=== PATIENT | female | born 1965 | race Caucasian/White ===

== ENCOUNTER → 2022-11-02 10:45 | Outpatient (CLI) | payer OTHER, SELFPAY ==
--- NOTE | ~2022-11-02 | MM_ITS ---
EXAMINATION: MM screening dereck BI w keith HISTORY: Screening mammogram TECHNIQUE: Craniocaudal and mediolateral oblique 3-D tomosynthesis images were obtained and synthetic 2-D images were generated. CAD analysis was submitted and interpreted. COMPARISON: 12/24/2018, 12/07/2014 bilateral screening mammogram examinations BREAST PARENCHYMAL COMPOSITION: The breasts are extremely dense, which lowers the sensitivity of mamm ography. FINDINGS: There is no evidence of suspicious mass, calcification, or architectural distortion to sugg est malignancy in either breast. There has been no suspicious interval change. IMPRESSION: 1. No mammographic evidence of malignancy. 2. Recommend routine screening mammography in one year. BI-RADS Category 1: Negative Reviewed, dictated and finalized at location A.
== END ==
DX: Z12.31 Encounter for screening mammogram for malignant neoplasm of breast (principal)
CPT/HCPCS: 77063; 77067

== ENCOUNTER 2024-10-20 08:04 | Outpatient (CLI) | payer BC, SELFPAY ==
--- NOTE | ~2024-10-20 | MM_ITS ---
EXAMINATION: MM screening dereck BI w keith HISTORY: Screening TECHNIQUE: Craniocaudal and mediolateral oblique 3-D tomosynthesis images were obtained and synthetic 2-D images were generated. CAD analysis was submitted and interpreted. COMPARISON: Comparison to multiple prior studies sequentially, with oldest reviewed study dated 12/07. BREAST PARENCHYMAL COMPOSITION: The breasts are extremely dense, which lowers the sensitivity of mamm ography. FINDINGS: There is no evidence of suspicious mass, calcification, or architectural distortion to sugg est malignancy in either breast. There has been no suspicious interval change. IMPRESSION: 1. No mammographic evidence of malignancy. 2. Recommend routine screening mammography in one year. BI-RADS Category 1: Negative Reviewed, dictated and finalized at location B.
--- OUTSIDE RECORDS SUMMARY | 2024-10-20 08:14 | XMS_ITS | Data Portability ---
Author Organization [facility], [address] [facility] ([place]) Address [address] [place] [address] Care Team Providers Care Skin Piler Name Role Phone FIDEL QUESADA Primary Care Provider [phone] Assessment Encounter Date Assessment Date Assessment LastModified by Organization Details LastModified Time 07/02/2024 07/02/2024 Hypothyroidism -iatrogenic after partial thyroidectomy -managed on levothyroxine. -TSH, BMP collected today Recurrent DVT -continue Eliquis ppx. Lipid screening -lipid panel collected for baseline. Colon cancer screening -discussed options. She declines colonoscopy but agreeable to Cologuard. She has been receiving gynecological care in [place]. States she is up to date on cervical and breast cancer screening. We will obtain records from Dr. Potter's office. Continue current medication regimen (will need to send levothyroxine once TSH resulted). Plan routine follow up in 12 months, sooner if needed. Patient voices understanding of and agreement with plan. [email or web address] Not available 07/02/2024 21:06:49 Plan of Treatment Reminders Order Date Submit Date Provider Last Modified By Organization Details Last Modified Time Details Appointments None recorded. Lab lipid panel, serum 025 025 [facility], [address] [place] [address], [id number], 5 15:12:02 BMP, serum or plasma 025 025 TREMAINE [facility], [facility] [place] [address], [id number], 15:12:01 TSH, ultra-sen sitive, serum 025 [facility] Only - [facility], [address] [place] [address], [id number], 5 15:07:44 Referral None recorded. Procedures None recorded. Surgeries None recorded. Imaging None recorded. Medication Orders Eliquis 5 mg tablet 025 TREMA[facility] [place], [place] - [id number], [address] [place], [address], 14:45:24 Patient TargetsNo targets recorded. Patient InstructionsNo instructions recorded. Reason for Referral None Reported. Results Created Date Observation Date Name Description Value Unit Range Abnormal Flag Note LastModifiedBy Organization Detail LastModifiedTime 07/02/1907/03/2024 TSH, ultra -sens itive , serum TSH3 0.609 uIU/m L .340-5 .600 Not Available [facility] [address] [place] [address], [id number], 07/03/2024 15:07:44 07/02/1907/03/2024 BMP, serum or plasm a basic met. panel Not Available [facility] [address] [place] [address], [id number], 07/03/2024 15:12:00 07/02/1907/03/2024 BMP, serum or plasm a glucose 101 mg/dL 70-100 high Not Available [facility] [address] [place] [address], [id number], 07/03/2024 15:12:00 07/02/1907/03/2024 BMP, serum or plasm a sodium 142 mmol/ L 136-14 6 Not Available [facility] [address] [place] [address], [id number], 07/03/2024 15:12:00 07/02/1907/03/2024 BMP, serum or plasm a potassium 4.0 mmol/ L 3.5-5. 1 Not Available [facility] [address] [place] [address], [address], 07/03/2024 15:12:00 07/02/19 25 07/03/2024 BMP, serum or plasm a chloride 104 mmol/ L 98-110 Not Available [facility] [address] [place] [address], [address], 07/03/2024 15:12:00 07/02/19 25 07/03/2024 BMP, serum or plasm a CO2 29 mEq/L 20-32 Not Available [facility] [address] [place] [address], [address], 07/03/2024 15:12:00 07/02/19 25 07/03/2024 BMP, serum or plasm a anion gap 13 mmol/ L 10-22 Not Available [facility] [address] [place] [address], [address], 07/03/2024 15:12:00 07/02/19 25 07/03/2024 BMP, serum or plasm a calcium 9.9 mg/dL 8.4-10 .4 Not Available [facility] [address] [place] [address], [address], 07/03/2024 15:12:00 07/02/19 25 07/03/2024 BMP, serum or plasm a BUN 14 mg/dL 7-21 Not Available [facility] [address] [place] [address], [address], 07/03/2024 15:12:00 07/02/19 25 07/03/2024 BMP, serum or plasm a creatinine 0.8 mg/dL 0.7-1. 3 Not Available [facility] [address] [place] [address], [id number], 07/03/2024 15:12:00 07/02/19 25 07/03/2024 BMP, serum or plasm a CKD-epi GFR 86 eGFR was calcu lated using the 2020 CKD-E PI equat ion. (Train Caller satya Kidne y Disea se has an eGFR less than 60 mL/mi n/1.7 3mm for a perio d of three month s or more. ) This calcu latio n has not been valid ated for patie nt ages <18 or >90 years old. Not Available [facility] [address] [place] [address], [address], 07/03/2024 15:12:00 07/02/19 25 07/03/2024 lipid panel , serum lipid profile Not Available [facility] [address] [place] [address], [address], 07/03/2024 15:12:02 07/02/19 25 07/03/2024 lipid panel , serum cholesterol 184 mg/dL <25-20 0 Not Available [facility] [address] [place] [address], [address], 07/03/2024 15:12:02 07/02/19 25 07/03/2024 lipid panel , serum triglyceride 95 mg/dL 15-200 Not Available [facility] [address] [place] [address], [address], 07/03/2024 15:12:02 07/02/19 25 07/03/2024 lipid panel , serum HDL 55 mg/dL >40 Not Available [facility] [address] [place] [address], [address], 07/03/2024 15:12:02 07/02/19 25 07/03/2024 lipid panel , serum LDL, calculated 110 mg/dL 5-100 high Not Available [facility] [address] [place] [address], [address], 07/03/2024 15:12:02 07/02/19 25 07/03/2024 lipid panel , serum VLDL 19 mg/dL 1-40 Not Available [facility] [address] [place] [address], [address], 07/03/2024 15:12:02 07/02/19 25 07/03/2024 lipid panel , serum chol/HDL 3.3 ratio 0.0-4. 4 Not Available [facility] [address] [place] [address], [address], 07/03/2024 15:12:02 07/31/19 25 11/02/2022 MAMMO , scree leo, digit al, bilat eral No observ ation record ed. [email or web address] [facility] [address], [place], [address], 07/31/2024 14:03:36 09/10/19 25 04/03/2022 imagi ng/di agnos tic resul t No observ ation record ed. [email or web address] Not Available 01:59:21 Result Notes None recorded. Problems Name Problem SNOMED Code Status Onset Date Resolution Date Notes Provider Name and Address Organization Details Recorded Time Recurren t deep vein thrombos is 826787906 Active 2024 Hx Left Leg DVT & PE 1998 (during pregnanc y). Superfic ial L. greater saphenou s vein . Then L. common femoral vein DVT . Heme-Onc eval then () recommen ded halfway anti-coa g. Tx Eliquis (plan transiti on Rx from Hematolo gy to PCP in Fall 2022). Catrina Caballero, KIANA, [employer] TECHNICIAN [address] [place] [address], [phone], [facility] 5 12:29:27 Pain in left arm 189586679 Active 2024 radiatin g from shoulder down ulnar-po sterior arm in fall. NCS suggesti ve of mild carpal tunnel syndrome (but no radiculo hugo). Ortho onboard . 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 Catrina Caballero APRN, [employer] TECHNICIAN [address] [place] [address], [phone], [facility] 5 12:29:51 Chronic neck pain 58196583365 07 Active 2024 sx > 1yr, assoc'd rt sided facial parasthe adi. Impv'd, not resolved w/ PT. 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 Catrina Caballero APRN, [employer] TECHNICIAN [address] [facility], [place], [address], [facility] 5 12:30:06 Chronic thyroidi tis 55620061 Active 2024 Catrina Caballero APRN, [employer] TECHNICIAN [address] [place] [address], [address], [facility] 5 12:30:18 Lipoma of chest wall 914006547 Completed 202407/02/2024 discomfo rt and asymmetr y of left upper-ou ter chest, MRI confirms lipomato us tumor. s/p excision 05-19-22. Catrina Caballero APRN, [employer] TECHNICIAN [address] [place] [address], [phone], [facility] 5 12:30:41 History of pulmonar y embolus 680485433 Active 2024 w/ DVT 1998 during pregnanc y. s/p Heme-Onc eval (incl rule OUT Protiein S deficien cy) where ppx Aspirin recommen ded plus post-op low-dose Lovenox for surgerie s (or during hospital izations ). History / ppx plan then complica ayala by recurren t DVT (see separate problem) . Catrina Caballero APRN, [employer] TECHNICIAN [address] [facility], [place], [address], [facility] 5 12:30:58 Hypothyr oidism 68236464 Active 2024 iatrogen ic after partial thyroide comy (for thyroid mass, ultimate ly benign). Tx levothyr oxine (logisti juan Rx'd by ENT, until plan transiti on to PCP in / after Fall 2022). TSH 0.6 on . Catrina Caballero APRN, [employer] TECHNICIAN [address] [facility], [place], [address], [facility] 5 15:20:57 Deep venous thrombos is of left lower extremit y [id number] 4100 Completed 202407/02/2024 Left Common Femoral Vein DVT 12/2022. Catrina Caballero APRN, [employer] TECHNICIAN [address] [facility], [place], [address], [facility] 5 12:31:41 Recurren t urinary tract infectio n 330586480 Completed 202407/02/2024 nmL renal / bladder US . Bactrim Rx for episode 10/22/17, cx Klebsiel la (Amp & Macrobid resistan t). 04/21/19 urine dip + leukocyt es, blood. Cx ecoli, resistan t to several abx but sensitiv e to Bactrim. 04/24/19 changed to Macrobid for persisti ng sx. tx Bactrim. Catrina Caballero APRN, [employer] TECHNICIAN [address] [facility], [place], [address], [facility] 5 12:32:02 Superfic ial vein thrombos is 416711281 Completed 202407/02/2024 04/26/22 left greater saphenou s vein, approach ing deep vein system, Tx w/ Eliquis x 3mo. See, then Recurren t DVT. Catrina Caballero APRN, [employer] TECHNICIAN [address] [facility], [place], [address], [facility] 5 12:32:23 Tachycar schuyler 4523794 Active 202409/07/23 Noted with exertion ; nrml EKG and cardiac enzyme; Holter monitor sinus rhythm ranging from 45-150 bpm; 184 PVC's noted and 32 PAC's Catrina Caballero APRN, [employer] TECHNICIAN [address] [place] [address], [address], [facility] 5 12:32:38 Screenin g mammogra phy Active 2024 f/b gyne. NmL Catrina Caballero APRN, [employer] TECHNICIAN [address] [place] [address], [phone], [facility] 5 14:02:48 Screenin g for malignan t neoplasm of colon Active 2024 neg Cologuar d . Plan repeat Catrina Caballero APRN, [employer] TECHNICIAN [address] [place] [address], [phone], [facility] 5 17:43:39 Cancer cervix screenin g status 194800497 Active 2024 f/b gyne (Dr. Potter in [facility] [place] NILM, neg HPV. Catrina Caballero APRN, [employer] TECHNICIAN [address] [place] [address], [phone], [facility] 5 12:02:05 Hyperlip idemia screenin g Active 2024 baseelin e total 184, HDL 55, LDL 110. 10 yr risk 2 % Catrina Caballero APRN, [employer] TECHNICIAN [address] [place] [address], [address], [facility] 5 15:20:44 Problem Notes None recorded. Procedures Surgical History Date Name Laterality Status Provider Name and Address Organization Details Recorded Time lobectomy of thyroid gland completed Catrina Caballero APRN, [employer] TECHNICIAN [address] [place] [address], [phone], [facility] 07/02/2024 12:33:11 excision of mass completed Catrina Caballero APRN, [employer] TECHNICIAN [address] [place] [address], [phone], [facility] 07/02/2024 12:33:28 Imaging Results None recorded. Procedure Notes None recorded. Medical Equipment None Reported. Allergies No known drug allergies Medications Name Sig Start Date Stop Date Status Note LastModified by Organization Details LastModified Time levothyroxine 75 mcg tablet Take 1 tablet every day by oral route. 2024 active Not Available Not Available Not Avai lable Eliquis 5 mg tablet TAKE 1 TABLET BY MOUTH TWO TIMES A DAY 2024 active Not Available Not Available Not Avai lable Hair, Skin and Nails (biotin) Take 1 tablet daily active Not Available Not Available No t Available Vitals Date Recorded Body weight Body temperature Heart rate Oxygen saturation Oxygen saturation in Arterial blood by Pulse oximetry Body mass index (BMI) Body height Systolic blood pressure Diastolic blood pressure Provider Name and Address Organization Details Last Updated DateTime 5 11402.4 2 g 98.1 [degF] 62 /min 98 % 98 % 23.8 kg/m2 168.91 cm 112 mm[Hg] 78 mm[Hg] Ashtyn Thomson [facility] 17:25:54 Social History None recorded. Functional Status None recorded. Mental Status None recorded. Family History Relationship Description Onset Age of this Age Resolved Age Notes LastModified by Organization Details LastModified Time Unspecified Relation Heart disease Not available 2024 12:33:54 Mother Diabetes mellitus [email or web address] Not available 2024 12:34:05 Brother Diabetes mellitus [email or web address] Not available 2024 12:34:05 Medical History No medical history recorded. Gynecological HistoryNo gynecological history recorded. Obstetrics History GPAL:G 0 P 0 0 0 0 Immunizations Vaccine Type Date Status Note Provider Nam e and Address Organization Details Recorded Time Influenza, split virus, quadrivalent, preservative 9 completed Ashtyn bender [facility] 07/02/2024 17:22:11 COVID-19, mRNA, LNP-S, PF, 100 mcg/0.5mL dose or 50 mcg/0.25mL dose 1 [facility] 17:22:11 COVID-19, mRNA, LNP-S, PF, 100 mcg/0.5mL dose or 50 mcg/0.25mL dose 1 [facility] 17:22:11 Past Encounters Encounter ID Performer Location Encounter Start Date Encounter Closed Date Diagnosis/Indication Diagnosis SNOMED-CT Code Diagnosis ICD10 Code Diagnosis Note [id number] Catrina Caballero APRN, [employer] REPA[employer] TECHNICIAN [facility] ([place]) [address] [place] [address] 07/02/2024 17:06:21 07/02/2024 17:55:20 Hyperlipidemia screening 264142471 Z13.220 Hypothyroidism 26845678 E03.8 Recurrent deep vein thrombosis 445793759 I82.409 Screening for malignant neoplasm of colon 567329818 Z12.11 Health Concerns Section Related Observation LastModified by Organization Detai ls LastModified Time None Recorded Concern Status LastModified by Organization Details LastModified Time None Recorded Advance Directives Directive None Recorded Payers Insurance Date Sequence Insurance Name Policy Number Policy Sands Covered Member ID Sands Member ID Guarantor Name 07/02/2024 1 [facility] [id number] Jessy Chapman [id number] Jessy Chapman 07/02/2024 1 [facility] ([facility] [id number] Jessy Chapman [id number] Jessy Chapman Notes Date Note Type Note Provider Name and Address Organization Details Recorded Time 07/02/2024 text/html Hypothyroidism- iatrogenic after partial thyroidectomy-m anaged on levothyroxine.- due for TSH Recurrent DVT-on Eliquis therapy. Catrina Caballero APRN, [employer] TECHNICIAN [address] [place] [address], [phone], [facility] 07/02/2024 21:10:38 OBGyn Episode No OBEpisode recorded.
--- OUTSIDE RECORDS SUMMARY | 2024-10-20 08:14 | XMS_ITS | Data Portability ---
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 We are following this with ultrasound. It appears stable. We discussed that. She also has developed some lesion of the Nikia myometrial/en dometrial border. It maybe a polyp, it maybe a fibroid. We will follow this along with the other lesion. We will repeat ultrasound in 6 months and discussed. [email or web address] Not available 09/17/2023 13:18:24 Plan of Treatment Reminders Order Date Submit Date Provider Last Modified By Organization Details Last Modified Time Details Appointments None recorded. Lab None recorded. Referral None recorded. Procedures None recorded. Surgeries None recorded. Imaging US, transvagina l 2023 024 [email or web address] [address], [address], [place], [address], 09:44:50 US, transvagina l 2023 024 [email or web address] [facility], [address], [place], [address], 21:09:17 Medication Orders None recorded. Patient TargetsNo targets recorded. Patient InstructionsNo instructions recorded. Reason for Referral None Reported. Results Created Date Observation Date Name Description Value Unit Range Abnormal Flag Note LastModifiedBy Organization Detail LastModifiedTime 03/02/20 23 03/02/2023 US, trans vagin al No observ ation record ed. [facility] [address], [place], [address], 03/02/2023 11:41:55 03/02/20 23 03/02/2023 US, trans vagin al No observ ation record ed. [email or web address] [address], [place], [address], 03/02/2023 22:47:55 09/03/19 24 09/03/2023 US, trans vagin al No observ ation record ed. [email or web address] [facility] [address], [place], [address], 09/03/2023 18:43:14 09/03/19 24 09/03/2023 US, trans vagin al No observ ation record ed. [email or web address] [address], [place], [address], 09/03/2023 20:41:56 04/18/20 24 04/18/2024 US, trans vagin al No observ ation record ed. [facility] [address], [place], [address], 04/18/2024 18:14:03 04/18/20 24 04/18/2024 US, trans vagin al No observ ation record ed. [email or web address] [address], [place], [address], 04/20/2024 21:34:35 Result Notes None recorded. Problems Name Problem SNOMED Code Status Onset Date Resolution Date Notes Provider Name and Address Organization Details Recorded Time Adult health examinati on Active 2014 ROUTINE MEDICAL EXAM;Recor ded Elsewhere: No Locatio n: [facility] rce: EHR Chroni c: N Practice ID: 0001 Billa ble Time: 11:00:00 AM Not Available [facility] 0 16:24:[address] Concept Active 2016 Encntr for general adult medical exam w/o abnormal findings;R ecorded Elsewhere: No Locatio n: [facility] Noemí rce: EHR Chroni c: N Practice ID: 0001 Billa ble Time: 09:00:00 AM Not Available [facility] 0 16:24:[address] Concept Active 2016 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) w/o abn findings;R ecorded Elsewhere: No Locatio n: [facility] Noemí rce: EHR Chroni c: N Practice ID: 0001 Billa ble Time: 09:00:00 AM Not Available [facility] 0 16:24:50 Specializ ed medical examinati on Active 2014 Routine gynecologi gaby examinatio n;Practice ID: 0001 Not Available [facility] 0 16:24:50 Screening for malignant neoplasm of cervix Active 2014 SCREEN MAL NEOP-CERVI X;Practice ID: 0001 Not Available [facility] 0 16:24:50 Screening for malignant neoplasm of rectum Active 2014 Screening for malignant neoplasms of the rectum;Pra ctice ID: 0001 Not Available [facility] 0 16:24:50 Menopause present 614941075 Active 2016 Symptoms such as flushing, sleeplessn ess, headache, lack of concentrat ion, associated with natural (age-relat ed) menopause; Recorded Elsewhere: No Locatio n: [facility] Noemí rce: EHR Chroni c: N Practice ID: 0001 Billa ble Time: 09:00:00 AM Not Available [facility] 0 16:24:50 Problem Notes None recorded. Procedures Surgical History Date Name Laterality Status Provider Name and Address Organization Details Recorded Time 3 Date of Last Pap Smear completed Flaquita Warner [facility] 04/22/2024 16:24:54 8 Thyroid Surgery completed Coleen Gracia [facility] 11/09/2022 14:52:58 excision of lipoma completed LIBBY Peterson [address], [place], [address], [facility] 11/09/2022 15:33:18 Imaging Results None recorded. Procedure Notes None recorded. Medical Equipment None Reported. Allergies No known drug allergies Medications Name Sig Start Date Stop Date Status Note LastModified by Organization Details LastModified Time paroxetin e 10 mg tablet take 1 tablet by oral route every day 11/09 completed Prescrib ed Elsewher e: No Locat ion: [facility] M odify By: elisabeth Nick nter DateTime : 01/04/20 17 09:00:00 AM Not Available Not Available Not Available hydrocodo ne 5 mg-acetam inophen 325 mg tablet TAKE 1 OR 2 TABLETS BY MOUTH EVERY SIX HOURS NEEDED FOR PAIN 11/09 completed Not Available Not Available Not Available sulfameth oxazole 800 mg-trimet hoprim 160 mg tablet TAKE 1 TABLET BY MOUTH TWO TIMES A DAY WITH FOOD FOR 3 DAYS UNTIL ALL IS GONE 04/22 completed Not Available Not Available Not Available levothyro xine 75 mcg tablet TAKE 1 TABLET BY MOUTH EVERY MORNING on an empty STOMACH active Not Available Not Available No t Available enoxapari n 80 mg/0.8 mL subcutane ous syringe inject 0.68 mL into subcutan eous tissue every 12 hours. First dose due on May 15. Hold the morning of surgery (on May 18). Continue for one week after surgery. HOLD Eliquis while on enoxapar in. 11/09 completed Not Available Not Available Not Available Pexeva 10 mg tablet take 1 tablet by oral route every day 01/03 completed Prescrib ed Elsewher e: No Locat ion: [facility] M odify By: elisabeth Zelayaou nter DateTime : 01/04/20 17 09:00:00 AM Not Available Not Available Not Available Eliquis 5 mg tablet TAKE 1 TABLET BY MOUTH TWO TIMES A DAY active Not Available Not Available No t Available Eliquis DVT-PE Treatment 30-Day Starter 5 mg (74 tablets) in dose pack Take 2 tablets (10mg) twice daily for 7 days then decrease dose to 1 tablet (5mg) twice daily thereaft er. 04/22 completed Not Available Not Available Not Available Vitals Date Recorded Body height Provider Name an d Address Organization Details Last Updated DateTime 03/12/2023 170.18 cm Lalitha Mittal [facility] 03/12/2023 17:49:24 Date Recorded Body height Body mass index (BMI) Body weight Provider Name and Address Organization Details Last Updated DateTime 04/22/2024 170.18 cm 24 kg/m2 48542.63 g Flaquita Timmy [facility] 04/22/2024 16:24:18 Social History Question Answer Notes LastModified by Organizat ion Details LastModified Time Tobacco Smoking Status Never Smoker Coleen bender, [facility] 11/09/2022 14:52:08 Do You Have An Advance Directive? No Information n ot available 04/22/2024 Are You Blind Or Do You Have Difficulty Seeing? No Information n ot available 11/09/2022 What Is Your Level Of Caffeine Consumption? Moderate Information not available 04/22/2024 In The 14 Days Before Symptom Onset, Have You Had Close Contact With A Laboratory-confirm ed COVID-19 While That Case Was Ill? No Information n ot available 04/22/2024 In The 14 Days Before Symptom Onset, Have You Had Close Contact With A Person Who Is Under Investigation For COVID-19 While That Person Was Ill? No Information not available 04/22/2024 Have You Been To An Area Known To Be High Risk For COVID-19? No Information not available 04/22/2024 Are You Deaf Or Do You Have Serious Difficulty Hearing? No Information not available 11/09/2022 What Type Of Diet Are You Following? REGULAR Information n ot available 04/22/2024 What Is The Highest Grade Or Level Of School You Have Completed Or The Highest Degree You Have Received? [id number] Information not available 04/22/2024 Are There Any Guns Present In Your Home? No Information not available 04/22/2024 Do You Use Protection During Sex? No Information not available 04/22/2024 Do You Use Your Seat Belt Or Car Seat Routinely? Yes Information not available 04/22/2024 Do You Have Smoke And Carbon Monoxide Detectors In Your Home? Yes Information not available 04/22/2024 How Much Tobacco Do You Smoke? No Information not available 04/22/2024 Do You Use Sunscreen Routinely? Yes Information not available 04/22/2024 Have You Used IV Drugs? No Information not available 04/22/2024 Do You Have Difficulty Walking Or Climbing Stairs? No Information not available 11/09/2022 Sex: Unknown Functional Status Question Answer Note LastModified by Organizat ion Details LastModified Time Do you use any illicit or recreational drugs? No Information not available 04/22/2024 What is your level of alcohol consumption? None Information not available 11/09/2022 Are you able to walk? YESWOREST Information not available 11/09/2022 Are you able to care for yourself? 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 No Information not available 11/09/2022 What is your exercise level? Moderate Information not available 04/22/2024 Mental Status Question Answer Note LastModified by Organization D etails LastModified Time Do you feel stressed (tense, restless, nervous, or anxious, or unable to sleep at night)? [id number] Information not available 04/22/2024 Family History Relationship Description Onset Age of this Age Resolved Age Notes LastModified by Organization Details LastModified Time Mother Diabetes mellitus [email or web address] Not available 10/13 14:51:29 Mother Essential hypertension [email or web address] Not available 02/2024 16:22:00 Brother Essential hypertension [email or web address] Not available 02/2024 16:22:00 Notes:Mother: Anemia, Diabet es mellitus Sister: Anemia Medical History Condition Response Allergies (Food, seasonal, environmental ) N Other N Breast Cancer N Drug/Latex Allergies/Reactions N Blood Transfusion N Dermatologic Disorders N Lung Disease N Defects or Inherited Disease N Breast Problem N Gestational Diabetes N Hematologic disorders Y Anesthesia Complications N History of STI N Deep Vein Thrombosis N Polycystic ovary syndrome N Anxiety Disorder N Autoimmune disease N Arthritis N Infertility N Polyps N Acid Reflux (GERD) N History of abnormal pap N Cancer N Stroke N Varicosities N Neurologic/Epilepsy N Endometriosis N High Cholesterol N Headaches N Fibromyalgia N Kidney Disease N Heart Problems N Kidney or Bladder Problems N Thyroid Problems Y GI Problems N Eating Disorder N Anemia N Art (IVF or FET) N Psychiatric Illness N Ovarian Cancer N Diabetes N Pulmonary (TB, Asthma) Y Hepatitis/Liver Disease N No Past Medical History N Eczema N Urinary Tract Infection N Abuse/Domestic Violence N Asthma N Trauma/Violence N Depression/ depression N Heart Disease N Pre-Eclampsia N Hypertension N Osteoporosis N Thrombophilias N Gynecological History Statement/Question Response If Post Menopausal, Age at Menopause 55 Abnormal Pap N Sexually Active? Y STIs/STDs N Age of first menstrual cycle 16 HPV Vaccine N Date of Last Pap Smear 11/09/2022 Sexual Problems? N Current Control Method Menopause LMP Unknown Obstetrics History GPAL:G 1 P 0 0 0 1 Type Value Living 1 Total 1 Past Encounters Encounter ID Performer Location Encounter Start Date Encounter Closed Date Diagnosis/Indication Diagnosis SNOMED-CT Code Diagnosis ICD10 Code Diagnosis Note [id number] LIBBY Peterson [place] [address] [address] 11/09/2022 14:25:15 11/09/2022 15:41:40 Gynecologic examination 10911056 Z01.419 Take Calcium with Vitamin D 12-1500mg daily. Do monthly self breast exams. It is advised to get annual flu shot in the fall and she could obtain at [facility] or [facility] care clinic. If you haven't received the Tdap vaccine in the last 10 years you should obtain one as well. Have mammogram yearly, bone density every 2-3 years and colonoscop y every 5-10 years depending on findings and history. Engage in daily exercise of low impact aerobic exercise 45-60 minutes 4-5 times weekly. Avoid tobacco and illicit drugs as well as using moderation with alcohol intake less than 1-2 8 oz beverages daily. This lifestyle behavior pattern will lead to less health conditions and longer life span. If BMI greater than 25 weight watchers or dietary consult advised. Questions have been answered. Patient appears to understand instructio ns, but if you have any further questions call or respond to this email WWEpostmen opausal x 2 years - last week had an episode of spotting x 1 dayno hx of abnormal papslast pap 2017pap updated todaycervi gaby lesion noted on exampelvic u/s orderedmam espinoza gill colon CA screening, declines colonoscop y. Cologuard orderedRTC for pelvic u/s - needs consult for evaluation /managemen t of cervical lesion/ postmenopa usal bleeding Time spent in visit is a total of 30 mins with at least 50% of visit consisting of counseling and review of plan of care. Postmenopa usal bleeding 77011866 N95.0 Lesion of cervix 3402890 01 N88.9 Screening for malignant neoplasm of colon 161992582 Z12.11 [id number] Edgar Potter MD [place] [address] [address] 11/15/2022 17:18:43 11/16/2022 15:18:46 Postmenopausal bleeding 98259892 N95.0 N88.9 [id number] Edgar Potter MD [place] [address],[facility] [place] [address] 11/29/2022 17:19:58 11/30/2022 09:41:25 Lesion of cervix 832912197 N88.9 57-year-ol d female who presents follow-up on ultrasound . She has a nonspecifi c mass in the body of the cervix. Is a hypoechoic lesion, possible nabothian cyst, possible fibroid. Very indistinct . we should the images. We spent over 40 minutes face-to-fa ce. More than 50% was counseling . Talked about reasonable follow-up. We agreed to 3 month follow-up with ultrasound in a meeting. We talked about surgical removal. We agreed to observe. Loss of scalp hair 33198 0004 L65.9 Talked at length about hair loss and hormones. Talked about some possible hormone replacemen t therapy or spironolac tone. Talked about bioidentic al hormones. The safety of hormones. Spent over 20 minutes on hormones, over 20 minutes on the cervical lesion. We spent a total of 40 minutes face-to-fa ce. [id number] Edgar Potter MD [place] [address] [address] 03/02/2023 09:49:07 03/02/2023 10:24:07 Ultrasound scan abnormal [id number] R93.89 [id number] Edgar Potter MD [place] [address],[place] [address] 03/12/2023 17:03:01 03/13/2023 09:21:19 Lump of cervix 881594278 R19.09 58-year-ol d female with possible cervical mass in the posterior superior aspect of the cervix. It is a nonspecifi c finding on ultrasound . It was nonvascula r. It is not appear to be growing In serial ultrasound s. We talked about follow-up. We talked about potential diagnoses. We talked about cramping after intercours e. She is not been sexually active due to the cramping she experience s during and after intercours e. Is it related to this mass. It is uncertain. She is going to resume sexual activity and consider treatment if it persists. Difficult to analyze or biopsy mass. It is a area surrounded by soft tissue and other structures including the bladder. to repeat ultrasound in 6 months and discuss [id number] Edgar Potter MD [place] [address] [address] 09/03/2023 17:07:37 09/04/2023 02:20:54 Ultrasound scan abnormal 493016583 R93.89 [id number] MD Gilma Lambert [address] [address] 09/17/2023 12:43:38 09/17/2023 14:30:11 Lump of cervix 981703612 R19.09 [id number] Edgar Potter MD [place] [address] [address] 04/18/2024 15:43:51 04/21/2024 09:44:50 Ultrasound scan abnormal 097544212 R93.89 [id number] Edgar Potter MD [place] [address] [address] 04/22/2024 16:21:12 04/22/2024 17:21:22 Ultrasound scan abnormal 292796515 R93.89 briefly discussed ultrasound results. The ultrasound is stable, unchanged. To repeat in 1 year Health Concerns Section Related Observation LastModified by Organization Detai ls LastModified Time None Recorded Concern Status LastModified by Organization Details LastModified Time None Recorded Advance Directives Directive N: Payers Encounter Date Sequence Insurance Name Policy Number Policy Sands Covered Member ID Sands Member ID Guarantor Name 03/12/[address] [facility] [id number] Jessy M Cruthis [id number] Jessy M Cruthis 09/03/[address] [facility] [id number] Jessy M Cruthis [id number] Jessy M Cruthis 09/17/[address] [facility] [id number] Jessy M Cruthis [id number] Jessy M Cruthis 04/18/2024 1 [facility] [id number] Jessy Cruthis [id number] Jessy M Cruthis 04/22/2024 1 [employer] [id number] Jessy Cruthis [id number] Jessy M Cruthis Notes Date Note Type Note Provider Name and Address Organization Details Recorded Time 03/12/2023 text/html 58-year-old female with possible cervical mass in the posterior superior aspect of the cervix. It is a nonspecific finding on ultrasound. It was nonvascular. It is not appear to be growing In serial ultrasounds. We talked about follow-up. We talked about potential diagnoses. We talked about cramping after intercourse. She is not been sexually active due to the cramping she experiences during and after intercourse. Is it related to this mass. It is uncertain. She is going to resume sexual activity and consider treatment if it persists. Difficult to analyze or biopsy mass. It is a area surrounded by soft tissue and other structures including the bladder. Edgar Potter MD [address], [place], [address], [facility] 03/12/2023 18:46:25 09/17/2023 text/html 58-year-old female with a small lesion of the body of the cervix. We are following this with ultrasound. It appears stable. We discussed that. She also has developed some lesion of the Nikia myometrial/endome trial border. It maybe a polyp, it maybe a fibroid. We will follow this along with the other lesion. We will repeat ultrasound in 6 months and discussed. Edgar Potter MD [address], [place], [address], [facility] 09/17/2023 13:18:58 04/22/2024 text/html briefly discusse d ultrasound results. The ultrasound is stable, unchanged. To repeat in 1 year Edgar Potter MD [address], [place], [address], [facility] 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 Status 11/10/19 23 1 CLOSED Fetus Data First Name Last Name Admitted to NICU Weight (g) Sex Living Outcome Pediatric Complications Fetus ID Race Codes Race Delivery Type 3770.25 6704 M Full Term [id number] Vaginal Delivery Landry Calculation Initial Landry Date Initial Exam Date Initial Exam Provider Initial Ultrasound Date Last Menstrual Period Date Ultra Sound Weeks Gestation 0 Eighteen To Twenty Week Landry Update Ultra Sound Date Fundal Height At Umbil Quickening Date Ultra Sound Latest Weeks Gestation Final Landry Confirmed By Final Landry Confirmed Date Final Landry Date Ultra Sound Latest Days Gestation 0 0 Menstrual History Last Menstrual Date Menses Monthly On Bcp Conception Prior Menses Frequency Hcg Plus Date Menarche Onset Age Delivery Information Delivery Date Delivery Type Labor Anesthesia Weeks Gestation Incision Type Labor Labor Length Hrs Delivered By Post Complications Tubal Sterilization Discharge Date Comments 9 Discharge Information Feeding Method Contraceptive Method Maternal HG B and HCT Levels
== END 2024-10-20 08:05 | disposition home or self-care (01) ==
LOC: CHSIMG 08:08
DX: Z12.31 Encounter for screening mammogram for malignant neoplasm of breast (principal)
CPT/HCPCS: 77063; 77067